=== PATIENT | male | born 1985 | race Caucasian/White ===

== ENCOUNTER 2021-05-30 19:47 | Emergency (ER) | payer BC, OTHER ==
[2021-05-30] MEDS ORDERED: Tetracaine HCl/PF 0.5% 4 ML Bottle EYEBOTH ONE (20:53)
== END 2021-05-30 23:02 | disposition home or self-care (01) ==
LOC: MW.ED 19:47 → MERGE 19:47 → MW.ED 23:02
DX: H20.9 Unspecified iridocyclitis (principal); E11.9 Type 2 diabetes mellitus without complications; Z86.16 Personal history of COVID-19; Z79.84 Long term (current) use of oral hypoglycemic drugs
CPT/HCPCS: 99283

== ENCOUNTER 2023-02-11 20:08 | Emergency (ER) | payer BC ==
[2023-02-11] MEDS ORDERED: Orphenadrine 60 MG/2 ML Inj IM ONE (20:23)
[2023-02-11] MEDS ORDERED: Ketorolac 30 MG/ML SDV IM ONE (20:23)
[2023-02-11] MEDS ORDERED: Lidocaine 4% 1 each Patch TOP SCH (20:30)
== END 2023-02-11 21:06 | disposition home or self-care (01) ==
LOC: MW.ED 20:08
DX: M54.50 Low back pain, unspecified (principal); E11.9 Type 2 diabetes mellitus without complications; Z86.16 Personal history of COVID-19
CPT/HCPCS: 96372; 99283; A9270; J1885; J2360